=== PATIENT | female | born 1945 | race Caucasian/White ===

== ENCOUNTER 2021-10-03 21:06 | Emergency (ER) | payer MEDICARE ==
[~2021-10-03] VITALS: Ht 170.2 cm; Wt 117.9 kg
[2021-10-03 22:08] LABS: BASOPHILS ABSOLUTE AUTO 0.03 K/mm3 (0.00-0.23); BASOPHILS PERCENT AUTO 1 % (0-2); EOSINOPHILS ABSOLUTE AUTO 0.18 K/mm3 (0.00-0.68); EOSINOPHILS PERCENT AUTO 4 % (0-6); Hematocrit 37.4 % (33.0-51.0); IMMATURE GRAN ABSOLUTE AUTO 0.01 K/mm3 (0.00-0.10); IMMATURE GRAN PERCENT AUTO 0 % (0-1); LYMPHOCYTES ABSOLUTE AUTO 1.85 K/mm3 (0.84-5.20); LYMPHOCYTES PERCENT AUTO 39 % (21-46); MONOCYTES ABSOLUTE AUTO 0.65 K/mm3 (0.16-1.47); MONOCYTES PERCENT AUTO 14 % (4-13); Mean Corpuscular HGB 29.3 pg (26.0-34.0); Mean Corpuscular HGB Conc 32.1 g/dL (31.5-36.5); Mean Corpuscular Volume 91 fL (80-100); Mean Platelet Volume 10.4 fL (9.1-12.4); NEUTROPHILS ABSOLUTE AUTO 2.05 K/mm3 (1.96-9.15); NEUTROPHILS PERCENT AUTO 43 % (41-73); Platelet Count 202 K/mm3 (150-400); RDW Coefficient Variation 13.3 % (11.7-14.2); RDW Standard Deviation 45.1 fL (35.1-46.3); White Blood Cell Count 4.77 K/mm3 (4.00-11.30)
[2021-10-03 22:24] LABS: Albumin, Blood 3.3 g/dL (3.4-5.0); Albumin/Globulin Ratio 0.9 (0.8-1.8); Bilirubin, Total 0.4 mg/dL (0.1-1.0); Bun/Creatinine Ratio 18.3 (12.0-20.0); Calcium, Blood 9.2 mg/dL (8.5-10.1); Creatinine, Blood 0.93 mg/dL (0.40-1.00); Globulin, Blood 3.8 g/dL (2.2-4.0); Total Protein, Blood 7.1 g/dL (6.4-8.2)
== END 2021-10-03 23:00 | disposition home or self-care (01) ==
LOC: ER 21:06
PROVIDERS: Emergency Medicine
DX: R07.89 Other chest pain (principal); G43.909 Migraine, unspecified, not intractable, without status migrainosus; I25.10 Atherosclerotic heart disease of native coronary artery without angina pectoris; E11.9 Type 2 diabetes mellitus without complications
CPT/HCPCS: 71045; 80053; 84484; 85025; 93005; 93010; 99284-25

== ENCOUNTER 2022-03-07 19:19 | Emergency (ER) | payer MEDICARE ==
[~2022-03-07] VITALS: Ht 170.2 cm; Wt 117.9 kg
[~2022-03-07 19:19] MED LIST: FURO20 PO
[2022-03-07 19:42] LABS: BASOPHILS ABSOLUTE AUTO 0.04 K/mm3 (0.00-0.23); BASOPHILS PERCENT AUTO 1 % (0-2); EOSINOPHILS ABSOLUTE AUTO 0.19 K/mm3 (0.00-0.68); EOSINOPHILS PERCENT AUTO 4 % (0-6); Hematocrit 36.7 % (33.0-51.0); Hemoglobin 12.1 g/dL (11.5-16.0); IMMATURE GRAN ABSOLUTE AUTO 0.01 K/mm3 (0.00-0.10); IMMATURE GRAN PERCENT AUTO 0 % (0-1); LYMPHOCYTES ABSOLUTE AUTO 1.57 K/mm3 (0.84-5.20); LYMPHOCYTES PERCENT AUTO 32 % (21-46); MONOCYTES ABSOLUTE AUTO 0.73 K/mm3 (0.16-1.47); MONOCYTES PERCENT AUTO 15 % (4-13); Mean Corpuscular HGB 29.2 pg (26.0-34.0); Mean Corpuscular Volume 89 fL (80-100); Mean Platelet Volume 10.7 fL (9.1-12.4); NEUTROPHILS ABSOLUTE AUTO 2.31 K/mm3 (1.96-9.15); NEUTROPHILS PERCENT AUTO 48 % (41-73); Platelet Count 198 K/mm3 (150-400); RDW Coefficient Variation 14.1 % (11.7-14.2); RDW Standard Deviation 45.4 fL (35.1-46.3); Red Blood Cell Count 4.14 M/mm3 (3.80-5.20); White Blood Cell Count 4.85 K/mm3 (4.00-11.30)
[2022-03-07 19:58] LABS: Albumin, Blood 3.6 g/dL (3.4-5.0); Albumin/Globulin Ratio 0.9 (0.8-1.8); Bilirubin, Total 0.3 mg/dL (0.1-1.0); Bun/Creatinine Ratio 20.7 (12.0-20.0); Creatinine, Blood 1.16 mg/dL (0.40-1.00); Potassium, Blood 3.8 mmol/L (3.5-5.5); Total Protein, Blood 7.6 g/dL (6.4-8.2)
[2022-03-07] MEDS ORDERED: METF500 PO (21:43)
[2022-03-07] MEDS ORDERED: GABA100 PO (21:43)
[2022-03-07] MEDS ORDERED: POTA8 PO (21:44)
[2022-03-07] MEDS ORDERED: CODACE30 PO (21:44)
== END 2022-03-07 22:30 | disposition home or self-care (01) ==
LOC: ER 19:19 → SURS 20:27 → ER 22:30
PROVIDERS: Emergency Medicine
DX: R07.89 Other chest pain (principal); I10 Essential (primary) hypertension; I25.2 Old myocardial infarction; E11.9 Type 2 diabetes mellitus without complications; G43.909 Migraine, unspecified, not intractable, without status migrainosus; Z91.048 Other nonmedicinal substance allergy status; Z88.5 Allergy status to narcotic agent; Z91.041 Radiographic dye allergy status; Z79.899 Other long term (current) drug therapy
CPT/HCPCS: 71045; 80053; 83690; 84484; 85025; 93005; 93010; J1170; J2405

== ENCOUNTER 2022-03-09 20:21 | Observation (INO) | payer MEDICARE ==
[~2022-03-09] VITALS: Ht 170.2 cm; Wt 133.8 kg
[~2022-03-09 20:21] MED LIST changes: +CODACE30 PO; +GABA100 PO; +METF500 PO; +POTA8 PO
[2022-03-09 21:07] LABS: BASOPHILS ABSOLUTE AUTO 0.04 K/mm3 (0.00-0.23); BASOPHILS PERCENT AUTO 1 % (0-2); EOSINOPHILS ABSOLUTE AUTO 0.15 K/mm3 (0.00-0.68); EOSINOPHILS PERCENT AUTO 4 % (0-6); Hematocrit 37.6 % (33.0-51.0); Hemoglobin 12.2 g/dL (11.5-16.0); IMMATURE GRAN ABSOLUTE AUTO 0.01 K/mm3 (0.00-0.10); IMMATURE GRAN PERCENT AUTO 0 % (0-1); LYMPHOCYTES ABSOLUTE AUTO 1.38 K/mm3 (0.84-5.20); LYMPHOCYTES PERCENT AUTO 34 % (21-46); MONOCYTES ABSOLUTE AUTO 0.51 K/mm3 (0.16-1.47); MONOCYTES PERCENT AUTO 12 % (4-13); Mean Corpuscular HGB 28.6 pg (26.0-34.0); Mean Corpuscular HGB Conc 32.4 g/dL (31.5-36.5); Mean Corpuscular Volume 88 fL (80-100); Mean Platelet Volume 11.1 fL (9.1-12.4); NEUTROPHILS ABSOLUTE AUTO 2.02 K/mm3 (1.96-9.15); NEUTROPHILS PERCENT AUTO 49 % (41-73); Platelet Count 190 K/mm3 (150-400); RDW Coefficient Variation 14.2 % (11.7-14.2); RDW Standard Deviation 45.2 fL (35.1-46.3); Red Blood Cell Count 4.27 M/mm3 (3.80-5.20); White Blood Cell Count 4.11 K/mm3 (4.00-11.30)
[2022-03-09] MEDS ORDERED: Isosorbide Mono30 MG PO (21:13)
[2022-03-09] MEDS ORDERED: MEMA5TAB PO (21:14)
[2022-03-09] MEDS ORDERED: ATOR40TA PO (21:16)
[2022-03-09] MEDS ORDERED: Aspir 8181 MG PO (21:16)
[2022-03-09] MEDS ORDERED: BUTALB-ACETAMI1 EAC6 PO (21:17)
[2022-03-09] MEDS ORDERED: DONEPEZIL HCL10 MG PO (21:18)
[2022-03-09 21:19] LABS: Albumin, Blood 3.8 g/dL (3.4-5.0); Bilirubin, Total 0.3 mg/dL (0.1-1.0); Bun/Creatinine Ratio 24.4 (12.0-20.0); Calcium, Blood 10.1 mg/dL (8.5-10.1); Creatinine, Blood 1.23 mg/dL (0.40-1.00); Globulin, Blood 3.9 g/dL (2.2-4.0); Potassium, Blood 3.9 mmol/L (3.5-5.5); Total Protein, Blood 7.7 g/dL (6.4-8.2)
[2022-03-09] MEDS ORDERED: DULO60 PO (21:19)
[2022-03-09] MEDS ORDERED: HYDACE10B PO (21:20)
[2022-03-09] MEDS ORDERED: MELO7.5 PO (21:21)
[2022-03-09] MEDS ORDERED: LOSA50 PO (21:21)
[2022-03-09] MEDS ORDERED: PREG150 PO (21:23)
[2022-03-09] MEDS ORDERED: POTA10T PO (21:23)
[2022-03-09] MEDS ORDERED: TIZA4 PO (21:26)
[2022-03-09] MEDS ORDERED: BUPR150ER PO (21:27)
[2022-03-09] MEDS ORDERED: TRAZ150T57 PO (21:27)
--- NOTE | 2022-03-10 04:02 | NUR ---
PATIENT IS A NEW ADMIT FROM THE ED. AXOX 4 AND FOUR PERSON TRANSFER FROM [facility] TO BED. DENIES CHEST PAIN, SOB, AND N/V. NIECE PRESENT ON ADMIT AND REPORTS SHE LIVES WITH NIECE AND FAMILY. DR RUBALCAVA PRESENT IN ROOM FOR ASSESSMENT AND REPORTS SHE WILL PLACE ORDERS. PATIENT REPORTS SHE FAILED A STRESS TEST EARLIER IN WEEK AND HAS AN ANGIOGRAM SCHEDULED NEXT TUESDAY AN OUTPATIENT. ONE ASSIST TO BSC W/FWW AND GB. VSS/AFEBRILE. DENIES SYNCOPE AT THIS TIME. CALL LIGHT IN REACH AND BED ALARM ACTIVATED. [facility]
--- NOTE | 2022-03-10 04:20 | NUR ---
TELEMETRY PLACED AND TECH REPORTS NSR 88.
--- NOTE | 2022-03-10 18:53 | NUR ---
SHIFT SUMMARY: PATIENT A&OX4. CALM, PLEASANT AND COOPERATIVE c CARE. USES CALL LIGHT APPROPRIATELY AND ABLE TO ADVOCATE FOR HER NEEDS. PATIENT RECEIVED OT 500 BOLUS THIS PM. PATIENT WORK c PT/OT MOBILITY TODAY. PATIENT AMBULATES TO BATHROOM c 1 ASSIST & FWW. CONTINENT OF URINE AND STOOL. PATIENT REPORTS OF PAIN TO R LEG. MEDICATED X1 c TYLENOL. REPORTS OF ADEQUATE RELIEF. DENIES CP/CHEST DISCOMFORT. LUNGS CLEAR T/O TO AUSCULTATION. VITAL SIGNS REVIEWED. IV TO LAC SALINE LOCKED. CALL LIGHT IN REACH
--- NOTE | 2022-03-11 04:49 | NUR ---
TRANSFER KNITTER SUMMARY THE PATIENT IS A 76 YEAR-OLD FEMALE WITH A DIAGNOSIS OF SYNCOPE. A&OX4. PATIENT EFFECTIVELY COMMUNICATES NEEDS. VSS. RR EVEN AND UNLABORED ON RA. SPO2 >92%. TELE REVEALS SINUS, 60'S. PAIN ASSESSED AND MEDICATED PER EMAR. PATIENT IS A STAND-BY ASSIST /C A FWW. NO ACUTE CONCERNS. BED LOW AND LOCKED. CALL LIGHT WITHIN REACH. THIS RN WILL CONTINUE TO MONITOR.
[2022-03-11 09:20] LABS: BASOPHILS ABSOLUTE AUTO 0.02 K/mm3 (0.00-0.23); BASOPHILS PERCENT AUTO 1 % (0-2); EOSINOPHILS ABSOLUTE AUTO 0.13 K/mm3 (0.00-0.68); EOSINOPHILS PERCENT AUTO 4 % (0-6); Hematocrit 35.8 % (33.0-51.0); Hemoglobin 11.9 g/dL (11.5-16.0); IMMATURE GRAN ABSOLUTE AUTO 0.01 K/mm3 (0.00-0.10); IMMATURE GRAN PERCENT AUTO 0 % (0-1); LYMPHOCYTES ABSOLUTE AUTO 1.02 K/mm3 (0.84-5.20); LYMPHOCYTES PERCENT AUTO 28 % (21-46); MONOCYTES ABSOLUTE AUTO 0.42 K/mm3 (0.16-1.47); MONOCYTES PERCENT AUTO 11 % (4-13); Mean Corpuscular HGB 29.3 pg (26.0-34.0); Mean Corpuscular HGB Conc 33.2 g/dL (31.5-36.5); Mean Corpuscular Volume 88 fL (80-100); Mean Platelet Volume 10.9 fL (9.1-12.4); NEUTROPHILS ABSOLUTE AUTO 2.08 K/mm3 (1.96-9.15); NEUTROPHILS PERCENT AUTO 57 % (41-73); Platelet Count 180 K/mm3 (150-400); RDW Coefficient Variation 13.9 % (11.7-14.2); RDW Standard Deviation 44.8 fL (35.1-46.3); Red Blood Cell Count 4.06 M/mm3 (3.80-5.20); White Blood Cell Count 3.68 K/mm3 (4.00-11.30)
[2022-03-11 09:39] LABS: Albumin, Blood 3.4 g/dL (3.4-5.0); Albumin/Globulin Ratio 0.9 (0.8-1.8); Bilirubin, Total 0.5 mg/dL (0.1-1.0); Bun/Creatinine Ratio 21.9 (12.0-20.0); Calcium, Blood 9.2 mg/dL (8.5-10.1); Creatinine, Blood 1.05 mg/dL (0.40-1.00); Globulin, Blood 3.9 g/dL (2.2-4.0); Potassium, Blood 3.9 mmol/L (3.5-5.5); Total Protein, Blood 7.3 g/dL (6.4-8.2)
--- NOTE | 2022-03-11 14:49 | NUR ---
NOTES/DISCHARGE SUMMARY: PATIENT A&OX4. CALM, PLEASANT AND COOPERATIVE c CARE. USES CALL LIGHT APPROPRIATELY AND ABLE TO ADVOCATE FOR HER NEEDS. NO NEW CHANGES c PATIENT CONDITION TODAY. DENIES CP/CHEST DISCOMFORT. DENIES DIZZINESS, N/V. ON TELE, AND HAS BEEN SR IN THE HIGH 60'S. LUNGS CLEAR T/O TO AUSCULTATION. PATIENT HAS BEEN AMBULATING TO BATHROOM c SBA AND FWW. PATIENT WORK c OT MOBILITY THIS AM. RECEIVED SCHEDULED MEDICATIONS. PATIENT REPORTS OF HEADACHE 10/14. MIDECATED X1 c FIORECET/ISOCET. PATIENT REPORTS PAIN DOWN TO /10. VITAL SIGNS REVIEWED. IV TO LAC WAS DC'D. PATIENT DISCHARGE HOME. DISCHARGE INSTRUCTION PACKET GIVEN TO PATIENT. EDUCATE PATIENT c ADMITTING DX, S/S, TX AND NEW PRESCRIBED MEDICATIONS. PATIENT STATED UNDERSTANDING AND NO FURTHER QUESTIONS. RX WAS FAXED TO PATIENT PREFERRED PHARMACY ([facility]). ALL PATIENT PERSONAL BELONGINGS WERE SENT HOME c THE PATIENT. PATIENT LEFT THE ROOM AT 1448. TRANSPORTED VIA WHEELCHAIR BY [employer]NA[employer] STAFF МАРИЯ TO [facility].
== END 2022-03-11 15:00 | disposition home or self-care (01) ==
LOC: ER 20:21 → MEDS 20:49
PROVIDERS: Family Medicine; Student in an Organized Health Care Education/Training Program; ADMIT Internal Medicine
DX: R55 Syncope and collapse (principal); I25.10 Atherosclerotic heart disease of native coronary artery without angina pectoris; I10 Essential (primary) hypertension; E11.9 Type 2 diabetes mellitus without complications; R94.31 Abnormal electrocardiogram [ECG] [EKG]; I95.9 Hypotension, unspecified
CPT/HCPCS: 36415; 71045; 80053; 82947; 83880; 84484; 85025; 93005; 93010; 96361; 96372; 96374; 97116; 97116-CQ; 97161; 97165; 97530; 97530-CQ; 97535; 99285-25; A9270; G0378; J1650; J1885; J7040

== ENCOUNTER 2022-03-17 06:15 | Day surgery (SDC) | payer MEDICARE ==
[~2022-03-17] VITALS: Ht 170.2 cm; Wt 137.5 kg
[~2022-03-17 06:15] MED LIST changes: +ATOR40TA PO; +Aspir 8181 MG PO; +BUPR150ER PO; +BUTALB-ACETAMI1 EAC6 PO; +DONEPEZIL HCL10 MG PO; +DULO60 PO; +HYDACE10B PO; +Isosorbide Mono30 MG PO; +LOSA50 PO; +MELO7.5 PO; +MEMA5TAB PO; +POTA10T PO; +PREG150 PO; +TIZA4 PO; +TRAZ150T57 PO
[2022-03-17] MEDS ORDERED: TRAZ50 PO (07:07)
[2022-03-17] MEDS ORDERED: VITAMIN D5000 UNIT PO (07:07)
[2022-03-17] MEDS ORDERED: Norco 10-325 T1 EACH PO (07:08)
[2022-03-17] MEDS ORDERED: DULO60 PO (07:09)
[2022-03-17] MEDS ORDERED: OYSTER SHELL C500 MG PO (07:10)
[2022-03-17] MEDS ORDERED: BUTALB-ACETAMI1 EAC5 PO (07:11)
--- NOTE | 2022-03-17 09:45 | NUR ---
patient returned to [facility] awake and alert. right radial TR band in place. site reviewed with June RT. wrist board in place.
[2022-03-17] MEDS ORDERED: DILT120 (10:36)
--- NOTE | 2022-03-17 11:32 | NUR ---
REMOVAL OF AIR FROM tr BAND STARTED
--- NOTE | 2022-03-17 12:00 | NUR ---
tr BAND AIR REMOVAL COMPLETE. SITE REMAINS SOFT AND [id number]. NO HEMATOMA, NO BLEEDING.
--- NOTE | 2022-03-17 12:43 | NUR ---
PATIENT UP AT BEDSIDE. DRESSED WITH ASSISTANCE.tr BAND REMOVED. A DISTAL TO SITE NOTED. tr BAND REPLACED WITH 10CC AIR.
--- NOTE | 2022-03-17 12:47 | NUR ---
tr BAND REMOVED. SITE REVIEWED BY CARLOS SALDAÑA. ARE HAS SOFTED AND NOT EXPANDING. ADVISED THAT IT WAS LIKELY HAPPENED WITH THE INITIAL SHEATH REMOVAL IN LAB. CLOTH DOT PLACED AND WILL MONITOR.
--- NOTE | 2022-03-17 13:45 | NUR ---
RIGHT RADIAL SITE UNCHANGED. SMALL BRUISE REMAINS AT SITE. NO BLEEDING AND NO EXPANSION OF PREVIOUS HEMATOMA DESCRIBED EARLIER. CLOTH DOT PLACED. WRIST BOARD IN PLACE. ARM SLING PLACED TO REMIND PATIENT NOT TO USE RIGHT WRIST. PATIENT AND NEICE VERBALIZED UNDERSTANDING OF DISCHARGE INSTRUCTIONS AND PRECAUTIONS. NO FURTHER QUESTIONS. IV SITE DCED WITH CATHETER INTACT. PATIENT NEEDS FREQUENT REMINDING NOT TO USE RIGHT WRIST. PATIENT TRANSFERREF VIA WHEELCHAIR TO WAITING CAR. NIECE DRIVING.
== END 2022-03-17 13:40 | disposition home or self-care (01) ==
LOC: MHTC 06:15
DX: I25.118 Atherosclerotic heart disease of native coronary artery with other forms of angina pectoris (principal); E78.5 Hyperlipidemia, unspecified; G47.33 Obstructive sleep apnea (adult) (pediatric); M19.90 Unspecified osteoarthritis, unspecified site; E11.9 Type 2 diabetes mellitus without complications; I25.2 Old myocardial infarction; I44.7 Left bundle-branch block, unspecified; I11.0 Hypertensive heart disease with heart failure; I50.9 Heart failure, unspecified; G30.9 Alzheimer's disease, unspecified; F02.80 Dementia in other diseases classified elsewhere, unspecified severity, without behavioral disturbance, psychotic disturbance, mood disturbance, and anxiety; E66.9 Obesity, unspecified; Z79.82 Long term (current) use of aspirin; Z88.5 Allergy status to narcotic agent; Z88.8 Allergy status to other drugs, medicaments and biological substances
CPT/HCPCS: 76937; 85347; 93458; 93571; 99152; 99153; C1769; C1887; C1894; J0153; J1200; J1644; J1720; J3010; J7030; J7050; Q9967

== ENCOUNTER 2022-05-04 18:26 | Emergency (ER) | payer MEDICARE ==
[~2022-05-04] VITALS: Ht 167.6 cm; Wt 122.5 kg
[~2022-05-04 18:26] MED LIST changes: +BUTALB-ACETAMI1 EAC5 PO; +DILT120; +Norco 10-325 T1 EACH PO; +OYSTER SHELL C500 MG PO; +TRAZ50 PO; +VITAMIN D5000 UNIT PO
== END 2022-05-04 19:26 | disposition home or self-care (01) ==
LOC: ER 18:26
DX: G43.909 Migraine, unspecified, not intractable, without status migrainosus (principal); I10 Essential (primary) hypertension; E11.9 Type 2 diabetes mellitus without complications; Z88.0 Allergy status to penicillin; Z88.2 Allergy status to sulfonamides; Z88.5 Allergy status to narcotic agent; Z88.8 Allergy status to other drugs, medicaments and biological substances; Z91.048 Other nonmedicinal substance allergy status; Z79.899 Other long term (current) drug therapy; Z79.82 Long term (current) use of aspirin
CPT/HCPCS: 96372; 99283-25; J1885

== ENCOUNTER 2022-12-19 20:14 | Emergency (ER) | payer MEDICARE ==
[~2022-12-19] VITALS: Ht 170.2 cm; Wt 117.9 kg
[2022-12-19 20:16] VITALS: BP 138/74
== END 2022-12-19 22:12 | disposition home or self-care (01) ==
LOC: ER 20:14
DX: G43.909 Migraine, unspecified, not intractable, without status migrainosus (principal); Z88.0 Allergy status to penicillin; Z88.2 Allergy status to sulfonamides; Z91.048 Other nonmedicinal substance allergy status; Z88.5 Allergy status to narcotic agent; Z79.899 Other long term (current) drug therapy; Z79.84 Long term (current) use of oral hypoglycemic drugs; I25.2 Old myocardial infarction; E11.9 Type 2 diabetes mellitus without complications; I10 Essential (primary) hypertension
CPT/HCPCS: 96361; 96374; 96375; 99283-25; J0780; J1100; J1200; J1885; J7030

== ENCOUNTER 2023-04-21 16:39 | Emergency (ER) | payer OTHER ==
[~2023-04-21] VITALS: Ht 170.2 cm; Wt 158.8 kg
[2023-04-21 21:00] VITALS: BP 124/82
== END 2023-04-21 21:05 | disposition home or self-care (01) ==
LOC: ER 16:39
DX: S70.12XA Contusion of left thigh, initial encounter (principal); M25.562 Pain in left knee; B88.9 Infestation, unspecified; M54.50 Low back pain, unspecified; G89.29 Other chronic pain; E11.9 Type 2 diabetes mellitus without complications; I10 Essential (primary) hypertension; G43.909 Migraine, unspecified, not intractable, without status migrainosus; I25.2 Old myocardial infarction; Z79.84 Long term (current) use of oral hypoglycemic drugs; Z79.82 Long term (current) use of aspirin; Z79.899 Other long term (current) drug therapy; Z88.0 Allergy status to penicillin; Z88.2 Allergy status to sulfonamides; Z88.5 Allergy status to narcotic agent; Z88.8 Allergy status to other drugs, medicaments and biological substances; Z91.048 Other nonmedicinal substance allergy status; W06.XXXA Fall from bed, initial encounter
CPT/HCPCS: 73560-LT; 99284-25

== ENCOUNTER 2023-04-22 00:41 | Emergency (ER) | payer OTHER ==
[~2023-04-22] VITALS: Ht 170.2 cm; Wt 117.9 kg
[2023-04-22 02:15] VITALS: BP 133/82
== END 2023-04-22 04:00 | disposition home or self-care (01) ==
LOC: ER 00:41
DX: S02.2XXA Fracture of nasal bones, initial encounter for closed fracture (principal); S00.81XA Abrasion of other part of head, initial encounter; Z20.7 Contact with and (suspected) exposure to pediculosis, acariasis and other infestations; W06.XXXA Fall from bed, initial encounter; Z88.0 Allergy status to penicillin; Z88.2 Allergy status to sulfonamides; Z91.048 Other nonmedicinal substance allergy status; Z88.5 Allergy status to narcotic agent; Z79.899 Other long term (current) drug therapy; Z79.82 Long term (current) use of aspirin; Z79.84 Long term (current) use of oral hypoglycemic drugs; E11.9 Type 2 diabetes mellitus without complications; G43.909 Migraine, unspecified, not intractable, without status migrainosus; I10 Essential (primary) hypertension
CPT/HCPCS: 70450; 70486; 99284-25